=== PATIENT | female | born 1990 | race Caucasian/White ===

== ENCOUNTER 2017-04-12 18:07 | Outpatient (CLI) | payer OTHER ==
[~2017-04-12] VITALS: Ht 160 cm; Wt 104.1 kg
[2017-04-12 18:30] VITALS: BP 122/66; PULSE 90; TEMP 98.6
[2017-04-12 18:31] VITALS: BP 122/66; PULSE 90; TEMP 98.6
[2017-04-12 19:15] VITALS: BP 119/70; PULSE 93
== END 2017-04-12 19:15 | disposition home or self-care (01) ==
LOC: LDRO 18:07 → LDR 18:15 → LDRO 19:15
DX: O62.9 Abnormality of forces of labor, unspecified (principal); Z3A.37 37 weeks gestation of pregnancy
CPT/HCPCS: OP